=== PATIENT | male | born 1955 | race Caucasian/White ===

== ENCOUNTER 2016-12-20 17:14 | Emergency (ER) | payer BC ==
[~2016-12-20] VITALS: Ht 172.7 cm; Wt 97.7 kg
[2016-12-20 17:17] VITALS: BP 150/93; PULSE 60; RESP 16; TEMP 98.2; O2SAT 96
[2016-12-20] MEDS ORDERED: LOSA25TA PO (17:30)
[2016-12-20] MEDS ORDERED: ALLO100T PO (17:30)
[2016-12-20] MEDS ORDERED: OMEP40CA2 PO (17:30)
[2016-12-20] MEDS ORDERED: METO25TA3 PO (17:30)
--- NOTE | 2016-12-20 17:41 | PD ---
HPI Chief Complaint: Musculoskeletal Complaint Time Seen by Provider: 17:31 Travel History International Travel<30 days: No Contact w/Intl Traveler<30days: No Traveled to known affect area: No History of Present Illness HPI 61-year-old male with history of gouty arthritis, presents to the ER today because he states that 2 days ago he started having right foot pain after [place] the [place]. He does not remember any injuries. He states it hurts now with movement or bearing weight. He denies any fevers, leg swelling, but states that the right foot area has been swollen and gets worse at night. He states that the swelling has gone down a little bit today. Pain currently as a 6 out of 10. Modifying Factors: None Associated Signs & Symptoms: Right foot pain Risk Factors: Gouty arthritis PFSH Past Medical History Cardiovascular Problems: Yes (htn on meds) Diminished Hearing: No GERD: Yes Gout: Yes Tetanus Vaccination: < 5 Years Influenza Vaccination: No ?: Not Past Surgical History Tonsillectomy: Yes Social History Alcohol Use: Yes Tobacco Use: No Allergies-Medications (Allergen,Severity, Reaction): Coded Allergies: No Known Allergies (Unverified , 12/20/16) Reported Meds & Prescriptions Reported Meds & Active Scripts Active Reported Omeprazole 40 Mg Cap 40 Mg PO DAILY Losartan (Losartan Potassium) 25 Mg Tab 23 Mg PO DAILY Allopurinol 100 Mg Tab 200 Mg PO DAILY Metoprolol Tartrate 25 Mg Tab 25 Mg PO DAILY Review of Systems Except as stated in HPI: all other systems reviewed are Neg Physical Exam Narrative GENERAL: Well-nourished, well-developed elderly white male patient currently none acute distress. Awake and oriented 3. SKIN: Focused skin assessment warm/dry. HEAD: Normocephalic. EYES: No scleral icterus. No injection or drainage. NECK: Supple, trachea midline. CARDIOVASCULAR: Regular rate and rhythm without murmurs, gallops, or rubs. RESPIRATORY: Breath sounds equal bilaterally. No accessory muscle use. GASTROINTESTINAL: Abdomen soft, non-tender, nondistended. MUSCULOSKELETAL: No cyanosis, or edema. BACK: Nontender without obvious deformity. No CVA tenderness. EXTREMITIES: No clubbing, cyanosis, or edema. No joint tenderness, effusion, or edema noted. No calf tenderness. Bilateral Homans sign negative. There is notable edema and point tenderness to palpation of the right lateral foot. No obvious deformities identified. Data Data Last Documented VS Vital Signs Date Time Temp Pulse Resp B/P Pulse Ox O2 Delivery O2 Flow Rate FiO2 12/20/16 17:17 98.2 60 16 150/93 96 Orders Foot, Complete ([id number]) (12/20/16 17:32) [facility] Medical Decision Making Medical Screen Exam Complete: Yes Emergency Medical Condition: Yes Medical Record Reviewed: Yes Differential Diagnosis Right foot painacute fractures versus cellulitis versus gouty arthritis Narrative Course X-ray did not reveal any signs of acute bony processes. I do not see any obvious signs of erythema and significant cellulitis. At this point, considering history, symptoms are more indicative of gouty arthritis. Patient has had similar swelling in other areas as well. The swelling this time does go up towards the lateral malleolus as well. My plan would be to give him symptomatic relief for pain with indomethacin. Return for any worsening in pain , swelling, redness, and as needed. Keep legs elevated. The plan was discussed with the patient and he states understanding. Diagnosis Primary Impression: Gouty arthritis Med/Other Pt SpecificInfo: Prescription(s) given Scripts Hydrocodone-Acetaminophen (Lortab)5-325 Mg Tab1 Tab PO Q6H PRN (PAIN GREATER THAN 6) #12 TAB Ref 0 Prov:Se Schumacher MD 12/20/16 Indomethacin 50 Mg Cap50 Mg PO TID #21 CAP Ref 0 Take with food, milk, or antacids to decrease stomach adverse effects. Prov:Se Schumacher MD 12/20/16 Disposition: 01 DISCHARGE HOME Condition: Stable Se Schumacher MD Dec 20, 2016 17:41
--- NOTE | 2016-12-20 18:00 | RADHPO ---
EXAM DATE/TIME: 12/20/2016 17:44 [facility] COMPARISON: No previous studies available for comparison. INDICATIONS : Right foot pain, no injury. MEDICAL HISTORY : None. SURGICAL HISTORY : None. ENCOUNTER: Initial ACUITY: 1 day PAIN SCORE: 5/10 LOCATION: Right lateral foot FINDINGS: There is diffuse soft tissue swelling. No radiopaque foreign body seen. Bones are osteopenic but I do n't see acute bony destruction. Thickening and focal calcification seen of mid and distal Achilles te ndon. CONCLUSION: Soft tissue swelling. No acute bony abnormality. oLki Newell MD on December 20, 2016 at 17:57 Board Certified Radiologist. This report was verified electronically.
[2016-12-20] MEDS ORDERED: HYDR-3533 PO (18:09)
[2016-12-20] MEDS ORDERED: INDO50CA PO (18:09)
== END 2016-12-20 18:14 | disposition home or self-care (01) ==
LOC: PHED 17:14
DX: M10.00 Idiopathic gout, unspecified site (principal); X58.XXXA Exposure to other specified factors, initial encounter; Y92.832 Beach as the place of occurrence of the external cause; Y93.01 Activity, walking, marching and hiking; I10 Essential (primary) hypertension
CPT/HCPCS: 73630; 99283